=== PATIENT | male | born 2000 | race Caucasian/White ===

== ENCOUNTER 2022-02-20 19:45 | Emergency (ER) | payer BC, SELFPAY ==
--- NOTE | ~2022-02-20 | XR_ITS ---
EXAM: [id number] HISTORY: pain and bruising after a fall COMPARISON: None available FINDINGS: Lungs are clear. Normal cardiomediastinal silhouette. Regional bones and soft tissues are normal for age. IMPRESSION: No acute osseous finding in the chest or left ribs. Reviewed, dictated and finalized at [facility].
--- NOTE | ~2022-02-20 | XR_ITS ---
EXAM: XR lumbar spine 2-3V HISTORY: pain and bruising after fall COMPARISON: None available FINDINGS: 5 nonrib-bearing lumbar-type vertebral bodies. Pedicles intact. Normal vertebral body alig nment. Vertebral body heights preserved. Disc spaces maintained. Normal facets and posterior elements . IMPRESSION: No acute fracture or traumatic malalignment in the lumbar spine. Reviewed, dictated and finalized at location K.
[2022-02-20 19:59] VITALS: BP 152/84; PULSE 72; RESP 16; TEMP 36.6; O2SAT 96
--- NOTE | 2022-02-20 20:13 | ED.GENADULT ---
HPI - General Adult General Chief complaint: Fall Stated complaint: fell down steps Source: patient and family Mode of arrival: ambulatory Limitations: no limitations History of Present Illness HPI narrative: Ruben tripped and fell down 2 stairs and landed on his back. He did not hit his head or neck. No LOC or other injury reported. He has no CP or SOB. Related Data Home Medications Medication Instructions Recorded Confirmed No Home Medications 02/20/22 02/20/22 Allergies Allergy/AdvReac Type Severity Reaction Status Date / Time No Known Allergies Allergy Verified 02/20/22 20:04 Review of Systems Constitutional: Constitutional: Reports no additional constitutional complaints Eyes: Eyes: Reports no additional eye complaints ENT: Reports system reviewed and no additional complaints, except as documented Cardiovascular: Cardiovascular: Reports no additional cardiovascular complaints Respiratory: Respiratory: Reports no additional respiratory complaints Gastrointestinal: Gastrointestinal: Reports no additional gastrointestinal complaints Genitourinary: Genitourinary: Reports no additional male genitourinary complaints Musculoskeletal: Musculoskeletal: Reports as per HPI Integumentary/Breasts: Skin/Breast: Reports system reviewed and no additional complaints, except as docu Neurologic: Reports system reviewed and no additional complaints, except as documented Psychiatric: Psychiatric: Reports no additional psychiatric complaints Endocrine: Endocrine: Reports no additional endocrine complaints Hematologic/Lymphatic: Hematologic/Lymphatic: Reports no additional hematologic/lymphatic complaints Allergic/Immunologic: Allergic/Immunologic: Reports no additional allergic/immunologic complaints Exam Const: General: no acute distress and alert Orientation/consciousness: patient oriented x3 Limitations: No altered mental status HENMT: Head: normal to inspection Eyes: Conjunctivae: conjunctivae normal Pupils: Equal, round and reactive pupils present Neck: Neck: normal visual inspection Chest: Chest palpation & inspection: normal inspection of the chest Resp: Effort & Inspection: normal respiratory effort Cardio: Rate: regular rate Back/Spine/Pelvis: Other: Large contusion on the left lower back and flank that was very TTP Skin: General skin exam: normal color Neuro: General: patient oriented x3 and moves all extremities Extrem: General: normal to inspection Psych: Appearance: grossly normal Mental Status: mental status grossly normal Course Vital Signs Vital signs: Vital Signs Temperature 97.9 F 02/20/22 19:59 Pulse Rate 72 02/20/22 19:59 Respiratory Rate 16 02/20/22 19:59 Blood Pressure 152/84 H 02/20/22 19:59 Pulse Oximetry 96 02/20/22 19:59 Temperature 97.9 F 02/20/22 19:59 Pulse Rate 72 02/20/22 19:59 Respiratory Rate 16 02/20/22 19:59 Blood Pressure 152/84 H 02/20/22 19:59 Pulse Oximetry 96 02/20/22 19:59 Medical Decision Making Vital Signs Vital Signs: Vital Signs Temperature 97.9 F 02/20/22 19:59 Pulse Rate 72 02/20/22 19:59 Respiratory Rate 16 02/20/22 19:59 Blood Pressure 152/84 H 02/20/22 19:59 Pulse Oximetry 96 02/20/22 19:59 Temperature 97.9 F 02/20/22 19:59 Pulse Rate 72 02/20/22 19:59 Respiratory Rate 16 02/20/22 19:59 Blood Pressure 152/84 H 02/20/22 19:59 Pulse Oximetry 96 02/20/22 19:59 Discharge Plan Discharge Clinical Impression: Back contusion Patient Disposition: Home, Self-Care Condition: Stable Instructions: Contusion in Adults (ED) Additional Instructions: Please return for any new, worsening or concerning symptoms. Prescriptions: No Action No Home Medications RF: 0 Follow-up/Referrals: Star Maher M.D. [Primary Care Provider] - Stand Alone Forms: Work/School Release IP
[2022-02-20] MEDS: KETOROLAC 30 MG/ML VIAL (*BKC) IM (20:30)
== END 2022-02-20 20:49 | disposition home or self-care (01) ==
PROVIDERS: Emergency Provider Family Medicine; PCP Family Medicine
DX: S30.0XXA Contusion of lower back and pelvis, initial encounter (principal); W10.9XXA Fall (on) (from) unspecified stairs and steps, initial encounter
CPT/HCPCS: 71101; 72100; 96372; 99284; J1885

== ENCOUNTER 2025-01-13 22:28 | Emergency (ER) | payer OTHER, SELFPAY ==
[2025-01-13 22:28] VITALS: BP 145/105; PULSE 86; RESP 18; O2SAT 97
--- OUTSIDE RECORDS SUMMARY | 2025-01-13 22:29 | XMS_ITS | Clinical Summary ---
Author Organization [facility] Address [address] [place] [id number] Care Team Providers Care Cobbler Sole Name Role Phone Star Maher MD Primary Care Provider [phone] Allergies Active Allergy Reactions Criticality Noted Date Comments Codeine Hallucinations 07/02/2019 Medications montelukast 10 MG tablet Take 10 mg by mouth nightly at bedtime. Active esomeprazole 40 MG capsule Take 40 mg by mouth every morning before breakfast. Active Family History Medical History Relation Comments Anxiety Father Depression Father Heart Disease Father Anxiety Mother Depression Mother Hypertension Mother Relation Status Comments Father Mother Social History Tobacco Use Types Packs/Day Years Used Date Smoking Tobacco: Never Smokeless Tobacco: Never Tobacco Cessation:Counseling Given: No Alcohol Use Standard Drinks/Week Comments No 0 (1 standard drink = 0.6 oz pur e alcohol) AUDIT-C Answer Date Recorded Frequency of Alcohol Consumption Never 07/02/2019 Average Number of Drinks Not on file 019 Frequency of Binge Drinking Not on file 06/07 Sex and Gender Information Value Date Recorded Sex Assigned at Not on file 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 Gender Identity Not on file Sexual Orientation Not on file Last Filed Vital Signs Vital Sign Reading Time Taken Comments Blood Pressure - - Pulse - - Temperature - - Respiratory Rate - - Oxygen Saturation - - Inhaled Oxygen Concentration - - Weight 72.6 kg (160 lb) 07/02/2019 3:45 PM CDT Height 172.7 cm (5' 8 ) 07/02/2019 3:45 PM CDT Body Mass Index 24.33 07/02/2019 3:45 PM CDT Plan of Treatment Health Maintenance Due Date Last Done Comments Annual Physical 2004 HPV Vaccines (1 - Male 3-dos e series) 2016 Meningococcal B Vaccine (1 o f 2 - Standard) 2017 Hepatitis C 2019 DTaP, Tdap and Td Vaccines ( 1 - Tdap) 2020 Hepatitis B Vaccines (1 of 3 - 19+ 3-dose series) 2020 COVID-19 Vaccine (1 - 2023-2 5 season) 2024 Influenza Adult (#1) 2024 Meningococcal Vaccine Aged Out No rodríguez yoni eligible based on patient's age to complete this topic Pneumococcal Vaccine: Pediat rics (0 to 5 Years) and At-Risk Patients (6 to 64 Years) Aged Out No longer eligible b ased on patient's age to complete this topic RSV Immunizations Under 20 Months Aged Out No longer eligible based on patient's age to complete this topic Insurance [facility] MEDICAID Care Teams Cobbler Sole Relationship Specialty Start Date End Date Star Maher MD [address] [place] [id number] PCP - General FAMILY PRACTICE 07/02/19
[2025-01-13 22:32] VITALS: BP 145/105; PULSE 95; RESP 18; TEMP 36.8; O2SAT 98
--- NOTE | 2025-01-13 22:50 | ED_ITS ---
HPI - General Adult General Chief complaint: Headache Stated complaint: upper respiratory Time Seen by Provider: 01/13/25 22:44 Source: patient Mode of arrival: ambulatory Limitations: no limitations History of Present Illness HPI narrative: 24 year old male presents to the Emergency Department complaining of left maxillary sinus pressure /pain with nasal /post-nasal drainage. Onset 3 days ago. No known fever. No visual changes. Denies sore throat. No known exposure. No cough, chest congestion, nausea, vomiting, diarrhea. Onset (ago): day(s) (3) Location: face (left maxillary sinus) Radiation: non-radiation Severity: moderate Relieving factors: none Exacerbating factors: none Treatments prior to arrival: none Related Data Allergies Allergy/AdvReac Type Severity Reaction Status Date / Time No Known Allergies Allergy Verified 01/13/25 22:32 Review of Systems Review of Systems: All systems reviewed & are unremarkable except as noted in HPI and below Constitutional: Constitutional: Reports as per HPI, Denies chills and Denies fever(s) Eyes: Eyes: Reports as per HPI and Denies change in vision ENT: Reports system reviewed and no additional complaints, except as documented and Reports nasal congestion Comments: left maxillary sinus pressure /pain Cardiovascular: Cardiovascular: Reports as per HPI and Denies chest pain Respiratory: Respiratory: Reports as per HPI, Denies chest congestion, Denies cough and Denies dyspnea Gastrointestinal: Gastrointestinal: Reports as per HPI, Denies abdominal pain, Denies diarrhea, Denies nausea and Denies vomiting Genitourinary: Genitourinary: Reports no additional male genitourinary complaints Musculoskeletal: Musculoskeletal: Reports no additional musculoskeletal complaints Integumentary/Breasts: Skin/Breast: Reports system reviewed and no additional complaints, except as docu Neurologic: Reports system reviewed and no additional complaints, except as documented Exam Const: General: no acute distress (mild) Nutritional Appearance: well nourished Orientation/consciousness: patient oriented x3 Limitations: no limitations HENMT: Head: normal to inspection Ears: external ears normal and TM's normal bilaterally Face/Nose/Sinus: Normal external nose present Face and sinus: sinus tenderness maxillary (left) Mouth: Yes Normal oral and palatal mucosa present Throat: posterior oropharynx normal Eyes: Conjunctivae: conjunctivae normal Pupils: Equal, round and reactive pupils present EOM: EOMs intact bilaterally Direct Ophthalmoscopy: no photophobia Neck: Neck: normal visual inspection and no meningeal signs Chest: Chest palpation & inspection: normal inspection of the chest Resp: Effort & Inspection: normal respiratory effort Auscultation: clear to auscultation bilaterally Cardio: Rate: regular rate Rhythm: regular rhythm GI: Inspection: non-distended GI Palp: Yes Soft to palpation and No Tenderness to palpation present (GI) : General: Yes bladder normal to palpation Back/Spine/Pelvis: Back: no CVA tenderness Skin: General skin exam: normal color Rashes: no rashes Neuro: General: patient oriented x3, moves all extremities, no meningeal signs, no focal motor deficits and CN's II-XI intact bilaterally Cranial nerves: Yes Nystagmus not present Speech: normal speech Gait exam (Neuro): Normal gait present Extrem: General: normal to inspection Psych: Mental Status: mental status grossly normal Course Course Emergency Course: 24 y/o male presents to the ED c/o 3 day history of left maxillary sinus pain /pressure with sinus drainage PE: tender left maxillary sinus Covid: negative Influenza: negative RSV: negative Tx: cephalexin 500 mg po, norco 10 mg po *reviewed and discussed results with patient. Discussed further management. Patient voices understanding and agreement. Rx and Instructions Vital Signs Vital signs: Vital Signs Pulse Rate 86 01/13/25 22:28 Respiratory Rate 18 01/13/25 22:28 Blood Pressure 145/105 H 01/13/25 22:28 Pulse Oximetry 97 01/13/25 22:28 Oxygen Delivery Room Air 01/13/25 22:28 Temperature 36.8 C 01/13/25 22:32 Pulse Rate 95 01/13/25 22:32 Respiratory Rate 18 01/13/25 22:32 Blood Pressure 145/105 H 01/13/25 22:32 Pulse Oximetry 98 01/13/25 22:32 Oxygen Delivery Room Air 01/13/25 22:32 Medical Decision Making Vital Signs Vital Signs: Vital Signs Pulse Rate 86 01/13/25 22:28 Respiratory Rate 18 01/13/25 22:28 Blood Pressure 145/105 H 01/13/25 22:28 Pulse Oximetry 97 01/13/25 22:28 Oxygen Delivery Room Air 01/13/25 22:28 Temperature 36.8 C 01/13/25 22:32 Pulse Rate 95 01/13/25 22:32 Respiratory Rate 18 01/13/25 22:32 Blood Pressure 145/105 H 01/13/25 22:32 Pulse Oximetry 98 01/13/25 22:32 Oxygen Delivery Room Air 01/13/25 22:32 Lab Data Labs: Lab Results 01/13/25 Range/Units 22:44 Influenza A (RT-PCR) Negative (Negative) Influenza B (RT-PCR) Negative (Negative) RSV (RT-PCR) Negative (Negative) SARS-CoV-2 RNA (RT-PCR) Negative (Negative) Discharge Plan Discharge Clinical Impression: Sinusitis Patient Disposition: Home, Self-Care Condition: Stable Instructions: Antibiotic Form, Sinusitis (ED) Additional Instructions: Take medications as prescribed Mucinex OTC as needed Follow up Primary Care Physician Return as needed Patient Language: Guatemalan Prescriptions: New cephalexin 500 mg capsule 500 mg PO Q6H Qty: 40 0RF hydrocodone-acetaminophen 10-325 mg tablet 1 tablet PO Q6H PRN (Reason: pain) Qty: 20 0RF Follow-up/Referrals: Star Maher M.D. [Primary Care Provider] - Time of Disposition: 23:54
--- OUTSIDE RECORDS SUMMARY | 2025-01-13 22:55 | XMS_ITS | Clinical Summary ---
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
[2025-01-13 23:22] LABS: Influenza A QL RT-PCR Negative (Negative); Influenza B QL RT-PCR Negative (Negative); RSV RNA, RT-PCR Negative (Negative); SARS-CoV-2 RNA PCR Negative (Negative)
--- NOTE | 2025-01-14 00:04 | PC.NURSE ---
THIS RN FAILED TO GIVE PRESCRIBED MEDICATIONS PRIOR TO DISCHARGING PATIENT
[2025-01-14 00:05] VITALS: BP 138/90; PULSE 94; RESP 18; O2SAT 100
== END 2025-01-14 00:05 | disposition home or self-care (01) ==
PROVIDERS: Emergency Provider Emergency Medicine; PCP Family Medicine
DX: J32.9 Chronic sinusitis, unspecified (principal); Z20.822 Contact with and (suspected) exposure to COVID-19
CPT/HCPCS: 87637; 99283